=== PATIENT | male | born 1950 | race Caucasian/White ===

== ENCOUNTER 2017-02-18 23:15 | Inpatient (IN) | payer MEDICAID, MEDICARE ==
[2017-02-19] MEDS ORDERED: Morphine 2 mg/ml ISec IVP STA (00:21)
[2017-02-19] MEDS ORDERED: Sodium Chloride 0.9% 1,000 ML IV SCH (00:30)
--- NOTE | 2017-02-19 00:30 | ED PDOC ---
Arrival/HPI - General Chief Complaint: Abdominal Pain Time Seen by Provider: 02/19/17 00:09 Historian: Patient - History of Present Illness Narrative History of Present Illness (Text): 02/19/17 00:32 67 year old male whose past medical history includes hypertension, diabetes, liver transplant, and VPH presents to the Emergency department complaining of intermittent chest pain over the past few days associated yesterday and today with abdominal cramps, nausea, vomiting, and diarrhea. Patient denies fever, chills, or shortness of breath. Time/Duration: < week Symptom Onset: Gradual Symptom Course: Unchanged Activities at Onset: Rest Past Medical History - Provider Review Nursing Documentation Reviewed: Yes - Infectious Disease Hx of Infectious Diseases: None - Tetanus Immunization Tetanus Immunization: Unknown - Cardiac Hx Cardiac Disorders: Yes (CAD) Hx Hypertension: Yes - HEENT Hx HEENT Disorder: Yes (WEARS RX GLASSES) Hx Cataracts: Yes Hx Glaucoma: Yes - Hematological/Oncological Hx Blood Disorders: Yes Hx Hepatitis C: Yes - Musculoskeletal/Rheumatological Hx Musculoskeletal Disorders: Yes (BACK SX, L KNEE SX-ARTHROSCOPY,) Hx Arthritis: Yes Hx Falls: No - Gastrointestinal Hx Gastrointestinal Disorders: Yes Hx Liver Failure: Yes (liver transplant 2006) - Genitourinary/Gynecological Hx Genitourinary Disorders: Yes (ENLARGED PROSTATE) Hx Prostate Problems: Yes (BPH) - Psychiatric Hx Psychophysiologic Disorder: Yes Hx Depression: Yes Hx Emotional Abuse: No Hx Physical Abuse: No Hx Substance Use: No - Surgical History Hx Liver Transplant: Yes Hx Open Heart Surgery: Yes (left knee ARTHROSCOPY) Hx Orthopedic Surgery: Yes (knee/back) Other/Comment: Liver transplant - Anesthesia Hx Anesthesia: Yes Hx Anesthesia Reactions: No Hx Malignant Hyperthermia: No - Suicidal Assessment Feels Threatened In Home Enviroment: No Family/Social History - Physician Review Nursing Documentation Reviewed: Yes Family/Social History: Unknown Family HX Smoking Status: Never Smoked Hx Alcohol Use: No Hx Substance Use: No Hx Substance Use Treatment: No Allergies/Home Meds Allergies/Adverse Reactions: Allergies codeine Allergy (Verified 02/19/17 00:11) ANAPHYLAXIS Home Medications: Home Meds Medication Instructions Recorded Confirmed Amlodipine Besylate 5 mg PO DAILY 11/18/12 01/29/15 Aspirin [Ecotrin] 81 mg PO DAILY 11/18/12 01/29/15 Bimatoprost [Lumigan] 1 drop OP HS 11/18/12 01/29/15 Bisoprolol 5 mg PO DAILY 11/18/12 01/29/15 Buspirone Hydrochloride [Buspirone] 10 mg PO DAILY 11/18/12 01/29/15 Citalopram Hydrobromide 20 mg PO DAILY 11/18/12 01/29/15 [Citalopram] Mycophenolate Mofetil [Cellcept] 500 mg PO BID 11/18/12 01/29/15 Depuf-6-Tabo Ethyl Esters [Lovaza] 1 gm PO QID 11/18/12 01/29/15 Omeprazole 40 mg PO DAILY 11/18/12 01/29/15 Cyclosporine, Modified [Neoral] 50 mg PO BID 08/25/13 01/29/15 Vitamin B Complex & Vitamin C 1 tab PO DAILY 08/25/13 01/29/15 [Strovite] cycloSPORINE [Restasis] 1 drop DAILY 08/25/13 01/29/15 Cholecalciferol [Vitamin D3] 1,000 iu PO DAILY 01/08/14 01/29/15 Olopatadine Hydrochloride [Pataday 1 drop OP DAILY 01/08/14 01/29/15 2.5 ml] Tamsulosin [Flomax] 0.4 mg PO DAILY 01/08/14 01/29/15 traZODone [Desyrel] 50 mg PO DAILY 01/08/14 01/29/15 Review of Systems - Physician Review All systems were reviewed & negative as marked: Yes - Review of Systems Constitutional: absent: Fevers, Other (chills) Respiratory: absent: SOB, Cough Cardiovascular: Chest Pain Gastrointestinal: Diarrhea, Nausea, Vomiting, Other (+abdominal cramps) Physical Exam Vital Signs Reviewed: Yes Vital Signs Temp Pulse Resp BP Pulse Ox 02/19/17 06:01 67 15 120/80 95 02/19/17 05:19 69 16 125/84 96 02/19/17 03:51 98.1 F 68 14 124/82 95 02/19/17 02:58 98.3 F 75 18 119/86 96 02/19/17 00:26 98.8 F 90 18 127/57 L 95 Temperature: Afebrile Blood Pressure: Normal Pulse: Regular Respiratory Rate: Normal Appearance: Positive for: Well-Appearing, Non-Toxic, Comfortable Pain Distress: None Mental Status: Positive for: Alert and Oriented X 3 - Systems Exam Head: Present: Atraumatic, Normocephalic Pupils: Present: PERRL Extroacular Muscles: Present: EOMI Conjunctiva: Present: Normal Mouth: Present: Moist Mucous Membranes Neck: Present: Normal Range of Motion Respiratory/Chest: Present: Clear to Auscultation, Good Air Exchange. No: Respiratory Distress, Accessory Muscle Use, Wheezes, Rales, Rhonchi Cardiovascular: Present: Regular Rate and Rhythm, Normal S1, S2. No: Murmurs, Rub, Gallop Abdomen: Present: Tenderness (minimal tenderness mid-lower abdomen ), Normal Bowel Sounds, Scars. No: Distention, Peritoneal Signs, Rebound, Guarding Back: Present: Normal Inspection Upper Extremity: Present: Normal Inspection. No: Cyanosis, Edema Lower Extremity: Present: Normal Inspection. No: Edema Neurological: Present: GCS=15, CN II-XII Intact, Speech Normal Skin: Present: Warm, Dry, Normal Color. No: Rashes Psychiatric: Present: Alert, Oriented x 3, Normal Insight, Normal Concentration Medical Decision Making ED Course and Treatment: 02/19/17 00:36 Impression: 67 year old male complaining of intermittent chest pain, abdominal cramps, nausea, vomiting, and diarrhea. Physical exam revealed minimal mid-lower abdominal tenderness, no guarding or rebound tenderness, old surgical scars noted. Plan: --CT Abdomen/Pelvis --EKG --Chest X-ray --Labs --Toradol, Zofran, IVF -- Reassess and disposition Prior Visits: Notes and results from previous visits were reviewed. Progress Notes: 02/19/17 02:34 EXAM: CT Abdomen and Pelvis Without Intravenous Contrast Dictated and Authenticated by: Elisa Hernández MD FINDINGS: Lower thorax: Lung bases with no findings of acute infection. Air in the esophagus in keeping with reflux. Small hiatus hernia. ABDOMEN: Liver: There is a nodular contour to the liver in keeping with cirrhosis. Gallbladder and bile ducts: Status post cholecystectomy. Pancreas: See above. Spleen: Unremarkable. No splenomegaly. Adrenals: Mild nodularity of the left adrenal gland. Kidneys and ureters: no hydronephrosis. No ureteral stones are seen noting that punctate stones or noncalcified stones may not be well seen on CT. Incidental finding of retroaortic left renal vein. Stomach and bowel: No anterior abdominal wall hernias containing bowel. There is increased fluid content in normal caliber colon. Finding suggest a diarrheal illness. Scattered diverticuli are seen with no findings to suggest acute diverticulitis. No evidence of obstruction. Appendix: The appendix is clearly identified and is normal. PELVIS: Bladder: collapsed, likely thick walled. Reproductive: Prostate 5.3 cm, laboratory correlation recommended. ABDOMEN and PELVIS: Intraperitoneal space: No free air. No significant fluid collection. Bones/joints: Bony structures - no apparent acute fractures. Likely disc disease L4-5, L5-S1. Soft tissues: See above.There are numerous surgical clips in the gallbladder fossa as well as the gastrohepatic ligament, and adjacent to the pancreas, history re this is not provided. Vasculature: Scattered atherosclerotic calcifications. Lymph nodes: Multiple although small para-aortic and aortocaval nodes at the level of the renal veins. Paraesophageal nodes at the diaphragmatic hiatus. There is an overall increase in jimbo burden although individual nodes are relatively small in the gastrohepatic ligament. Consider evaluation for esophageal or other cause. There is a mild amount of infiltration of the mesenteric fat, associated with multiple small nodes, see for example series 2 image 102, extending from the area immediately caudal to the pancreas inferiorly tracking with the major mesenteric vessels, this is a nonspecific finding noting that it is sometimes associated with cirrhosis. IMPRESSION: Findings in keeping with a diarrheal illness. Cirrhosis. Bladder as above, correlate for infection. Prostate prominent. The absence of intravenous contrast greatly limits evaluation of the parenchymal organs. The absence of oral contrast limits evaluation of the gastrointestinal tract. 02/19/17 04:14 Chest X-ray Impression: negative, ready by me 02/19/17 04:17 EKG: Ordered, reviewed, and independently interpreted the EKG. Rate : 90 BPM Rhythm : NSR Interpretation : LVH, inferior infarct, nonspecific ST/T changes 02/19/17 04:[address] Estrada who accepts patient to her service. Dr. Quiroga and Dr. Contreras on consult. - Lab Interpretations Lab Results: 02/19/17 00:45 02/19/17 00:45 Lab Results 02/19/17 04:05: pO2 106 H, VBG pH 7.31 L, VBG pCO2 31.0 L, VBG HCO3 15.6 L, VBG Total CO2 16.6 L, VBG O2 Sat (Calc) 98.4 H, VBG Base Excess -9.4 L, VBG Potassium 3.8, Sodium 135.0, Chloride 108.0 H, Glucose 94, Lactate 1.2, FiO2 21.0, Venous Blood Potassium 3.8 02/19/17 00:45: WBC 6.7 D, RBC 5.11, Hgb 15.3, Hct 44.5, MCV 87.1, MCH 29.9, MCHC 34.4, RDW 14.2, Plt Count 274, MPV 9.6, PT 11.4, INR 1.06, APTT 33.1 H, Sodium 138, Chloride 106, Potassium 3.9, Carbon Dioxide 17 L, Anion Gap 19, BUN 21, Creatinine 1.5 H, Est GFR ( Amer) 56, Est GFR (Non-Af Amer) 47, Random Glucose 117 H, Calcium 9.5, Total Bilirubin 1.3, AST 32, ALT 28, Alkaline Phosphatase 72, Lactate Dehydrogenase 433, Total Creatine Kinase 74, Troponin I < 0.01, Total Protein 8.3, Albumin 4.4, Globulin 3.9, Albumin/ Globulin Ratio 1.1, Lipase 85 I have reviewed the lab results: Yes - RAD Interpretation Radiology Orders: 02/19/17 00:19 ABD & PELVIS W/O PO OR IV CONT [CT] Stat CHEST PORTABLE [RAD] Stat - Medication Orders Current Medication Orders: Sodium Chloride (Sodium Chloride 0.9%) 1,000 mls @ 100 mls/hr IV .Q10H ISABEL Discontinued Medications Sodium Chloride (Sodium Chloride 0.9%) 1,000 mls @ 100 mls/hr IV .Q10H ISABEL Last Admin: 02/19/17 00:54 Dose: 100 MLS/HR eMAR Start Stop Document 02/19/17 00:54 EDIE (Rec: 02/19/17 00:54 EDIE [id number]) Intravenous Solution Start Date 02/19/17 Start Time 00:54 End Date 02/19/17 End time 10:54 Total Infusion Time 600 Ketorolac Tromethamine (Toradol) 30 mg IVP ONCE ONE Stop: 02/19/17 00:37 Last Admin: 02/19/17 00:55 Dose: 30 MG IVP Administration Document 02/19/17 00:55 FJA (Rec: 02/19/17 00:55 FJA [id number][place] Charges for Administration # of IVP Administrations 1 Ondansetron HCl (Zofran Inj) 4 mg IVP ONCE ONE Stop: 02/19/17 00:22 Last Admin: 02/19/17 00:54 Dose: 4 MG IVP Administration Document 02/19/17 00:54 FJA (Rec: 02/19/17 00:55 [facility]JA [id number]) Charges for Administration # of IVP Administrations 1 - Scribe Statement The provider has reviewed the documentation as recorded by the Scribe Jodi Diallo Provider Scribe Attestation: All medical record entries made by the Scribe were at my direction and personally dictated by me. I have reviewed the chart and agree that the record accurately reflects my personal performance of the history, physical exam, medical decision making, and the department course for this patient. I have also personally directed, reviewed, and agree with the discharge instructions and disposition. Disposition/Present on Arrival - Present on Arrival Any Indicators Present on Arrival: No History of DVT/PE: No History of Uncontrolled Diabetes: No Urinary Catheter: No History of Decub. Ulcer: No History Surgical Site Infection Following: None - Disposition Have Diagnosis and Disposition been Completed?: Yes Diagnosis: Chest pain, Gastroenteritis Disposition: HOSPITALIZED Disposition Time: 04:49 Patient Plan: Observation Patient Problems: Current Active Problems Problem Status Diagnosed Chest pain Acute Gastroenteritis Acute Condition: GOOD
[2017-02-19 01:10] LABS: HEMATOCRIT 44.5 % (42.0-52.0); MEAN CELL VOLUME 87.1 fL (80.0-105.0); MEAN CORPUSCULAR HEMOGLOBIN 29.9 pg (25.0-35.0); MEAN CORPUSCULAR HGB CONC 34.4 g/dl (31.0-37.0); MEAN PLATELET VOLUME 9.6 fl (7.0-11.0); RED CELL DISTRIBUTION WIDTH 14.2 % (11.5-14.5); WHITE BLOOD COUNT 6.7 10^3/ul (4.5-11.0)
[2017-02-19 01:14] LABS: ALB/GLOB RATIO 1.1 (1.1-1.8); ALKALINE PHOSPHATASE 72 U/L (38-133); ALT/SGPT 28 U/L (7-56); AST/SGOT 32 U/L (15-59); BILIRUBIN,TOTAL 1.3 mg/dL (0.2-1.3); BLOOD UREA NITROGEN 21 mg/dL (7-21); CALCIUM 9.5 mg/dL (8.4-10.5); CARBON DIOXIDE 17 mmol/L (21-33); GFR AFRICAN-AMERICAN 56; GLUCOSE,RANDOM 117 mg/dL (70-110); LIPASE 85 U/L (23-300); POTASSIUM 3.9 mmol/L (3.6-5.0); SODIUM 138 mmol/L (132-148); TOTAL PROTEIN 8.3 g/dL (5.8-8.3)
[2017-02-19 01:23] LABS: INR 1.06 (0.93-1.08); PARTIAL THROMBOPLASTIN TIME 33.1 Seconds (23.7-30.8)
[2017-02-19 01:24] LABS: TROPONIN I < 0.01 ng/mL
[2017-02-19 01:27] LABS: CHLORIDE 106 mmol/L (98-107)
--- NOTE | 2017-02-19 02:05 | CT ---
EXAM: CT Abdomen and Pelvis Without Intravenous Contrast CLINICAL HISTORY: 67 years old, male; Pain; Abdominal pain TECHNIQUE: Axial computed tomography images of the abdomen and pelvis without intravenous contrast. This CT exam was performed using one or more of the following dose reduction techniques: automated exposure control, adjustment of the mA and/or kV according to patient size, and/or use of iterative reconstruction technique. Coronal and sagittal reformatted images were created and reviewed. EXAM DATE/TIME: Exam ordered 02/19/2017 12:19 AM COMPARISON: No relevant prior studies available. FINDINGS: Lower thorax: Lung bases with no findings of acute infection. Air in the esophagus in keeping with reflux. Small hiatus hernia. ABDOMEN: Liver: There is a nodular contour to the liver in keeping with cirrhosis. Gallbladder and bile ducts: Status post cholecystectomy. Pancreas: See above. Spleen: Unremarkable. No splenomegaly. Adrenals: Mild nodularity of the left adrenal gland. Kidneys and ureters: no hydronephrosis. No ureteral stones are seen noting that punctate stones or noncalcified stones may not be well seen on CT. Incidental finding of retroaortic left renal vein. Stomach and bowel: No anterior abdominal wall hernias containing bowel. There is increased fluid content in normal caliber colon. Finding suggest a diarrheal illness. Scattered diverticuli are seen with no findings to suggest acute diverticulitis. No evidence of obstruction. Appendix: The appendix is clearly identified and is normal. PELVIS: Bladder: collapsed, likely thick walled. Reproductive: Prostate 5.3 cm, laboratory correlation recommended. ABDOMEN and PELVIS: Intraperitoneal space: No free air. No significant fluid collection. Bones/joints: Bony structures - no apparent acute fractures. Likely disc disease L4-5, L5-S1. Soft tissues: See above.There are numerous surgical clips in the gallbladder fossa as well as the gastrohepatic ligament, and adjacent to the pancreas, history re this is not provided. Vasculature: Scattered atherosclerotic calcifications. Lymph nodes: Multiple although small para-aortic and aortocaval nodes at the level of the renal veins. Paraesophageal nodes at the diaphragmatic hiatus. There is an overall increase in jimbo burden although individual nodes are relatively small in the gastrohepatic ligament. Consider evaluation for esophageal or other cause. There is a mild amount of infiltration of the mesenteric fat, associated with multiple small nodes, see for example series 2 image 102, extending from the area immediately caudal to the pancreas inferiorly tracking with the major mesenteric vessels, this is a nonspecific finding noting that it is sometimes associated with cirrhosis. IMPRESSION: Findings in keeping with a diarrheal illness. Cirrhosis. Bladder as above, correlate for infection. Prostate prominent. The absence of intravenous contrast greatly limits evaluation of the parenchymal organs. The absence of oral contrast limits evaluation of the gastrointestinal tract.
[2017-02-19 04:16] LABS: VENOUS BLOOD GAS BASE EXCESS -9.4 mmol/L (0.0-2.0); VENOUS BLOOD PH 7.31 (7.32-7.43)
[2017-02-19] MEDS: Sodium Chloride 0.9% 1,000 ML IV SCH ×2 (07:29→17:35)
[2017-02-19] MEDS ORDERED: CYCLOSPORINE PO SCH (10:00)
[2017-02-19] MEDS ORDERED: VITAMIN B COMPLEX PO SCH (10:00)
[2017-02-19] MEDS ORDERED: cycloSPORINE 100 mg/mL Oral Soln (50ml) PO SCH (10:00)
[2017-02-19] MEDS ORDERED: BISOPROLOL 5 MG PO SCH ×3 (10:00→11:24)
[2017-02-19] MEDS ORDERED: [UNRECOGNIZED DRUG - OTHER] PO SCH (10:00)
[2017-02-19] MEDS ORDERED: VITAMIN C PO SCH (10:00)
[2017-02-19] MEDS: cycloSPORINE 0.05 % Opth Emulsion UD OD SCH (10:31)
[2017-02-19] MEDS ORDERED: CYCLOSPORINE 25 MG PO SCH (11:14)
[2017-02-19] MEDS: Omega-3-Acid Ethyl Esters 1 GM Cap PO SCH ×4 (12:19→21:37)
[2017-02-19] MEDS: OLOPATADINE HYDROCHLORIDE OP SCH (12:20)
--- NOTE | 2017-02-19 12:46 | CARD ---
APPROVED REPORT EKG Measurement Heart [id number] <Conclusion> Normal sinus rhythm Possible Left atrial enlargement Left ventricular hypertrophy Inferior infarct, age undetermined Abnormal ECG
--- NOTE | 2017-02-19 13:21 | RAD ---
HISTORY: chest pain COMPARISON: No prior. FINDINGS: LUNGS: No active pulmonary disease. PLEURA: No significant pleural effusion identified, no pneumothorax apparent. CARDIOVASCULAR: Normal. OSSEOUS STRUCTURES: No significant abnormalities. VISUALIZED UPPER ABDOMEN: Normal. OTHER FINDINGS: None. IMPRESSION: No active disease.
--- NOTE | 2017-02-19 14:26 | CON ---
DATE: 02/19/2017 The patient is in room 264, bed 1. REASON FOR CONSULTATION: Abdominal pain, chest pain. HISTORY OF PRESENT ILLNESS: This is a 67-year-old male who is known to have high blood pressure, santiago betes, sleep apnea and blood pressure he has more than 20 years and diabetes he was told about 4 loren hs ago. The patient states since, last 2 days, he is having pain in abdomen with vomiting and diarrh ea. He states that since 20 years he has a constant pain in the chest and the left lower chest which goes directly to the back. It is a very sharp pain and it lasts for many hours. Sometimes, the lef t arm numb and weak. This chest pain has no relation to exertion. For the same chest pain, he had a stress test 01/29/2015 which was negative with ejection fraction of 76%. He also had echo 01/29/2015 which showed mild LVH, LV ejection fraction 60-65%, mild to moderate mitral regurg, mild tricuspid re gurg, trace aortic regurg, RSVP 36 mmHg. The patient also has history of liver transplant. PAST MEDICAL HISTORY: Positive for liver transplant, hypertension, sleep apnea, diabetes mellitus, k nee surgery. PERSONAL HISTORY: No smoking, no drinking. ALLERGIES: THE PATIENT IS ALLERGIC TO CODEINE. HOME MEDICATIONS: The patient was taking Norvasc 5 mg daily, aspirin 81 daily and Lumigan 1 drop ___ _ eye at bedtime, bisoprolol 5 mg p.o. daily, buspirone 10 mg p.o. daily, citalopram 20 mg daily, Ce llCept 500 mg b.i.d., Lovaza 1 gram p.o. q.i.d., omeprazole 40 mg daily, Neoral 50 mg b.i.d., vitamin B complex, vitamin C 1 tablet p.o. daily, cyclosporine 1 drop daily, vitamin D3 100 international un its p.o. daily, Pataday 2.5 mL 1 drop ____ eye daily, Flomax 0.4 daily, trazodone 50 mg daily. REVIEW OF SYSTEMS: All the systems reviewed, positive mentioned in the history, others were negative . FAMILY HISTORY: Not significant. PHYSICAL EXAMINATION: VITAL SIGNS: Blood pressure 132/82, respirations 18, pulse 73, temperature 97.8. HEAD: Normocephalic. EYES: Pupils normal. Conjunctivae normal. NOSE AND THROAT: Normal. NECK: JVP low. Carotid equal. THORAX: AP diameter normal. LUNGS: Clear. CARDIOVASCULAR: S1, S2. ABDOMEN: Soft, no tenderness, no organomegaly. Bowel sounds normal. EXTREMITIES: No clubbing, no cyanosis. LABORATORY: Shows WBC 6.7, hemoglobin 15.3, hematocrit 44.5, platelet 274. Sodium 138, potassium 3. 9, BUN 21, creatinine 1.5. Calcium, bilirubin, AST, ALT normal. Troponin less than 0.01. EKG showe d normal sinus rhythm, left atrial enlargement, left ventricular hypertrophy, possible old inferior i nfarct. DIAGNOSES: Abdominal pain, diarrhea, vomiting, probably gastroenteritis. Chest pain is atypical fro m cardiac point of view. High blood pressure, diabetes, sleep apnea, obesity, history of liver kim splant. PLAN: The patient is on aspirin 81 mg daily, also amlodipine 5 mg daily. The patient is getting IV fluid therapy. The patient's vomiting is better. He still has diarrhea. The patient is getting oth er medications as listed. We will continue present therapy and will repeat his echo and stress test when his vomiting, diarrhea has been stopped. We will follow with you. If he needs any GI procedure , from cardiac point of view, the patient can go for those procedures. Elie Pérez MD cc: [id number] TT: 02/19/2017 14:26:20 Confirmation # [id number] Dictation # [id number] tn
[2017-02-19 15:03] VITALS: BMI 31.9
[2017-02-19] MEDS ORDERED: Pneumococcal 23-Valent Vaccine IM ONE (15:03)
[2017-02-19 18:14] LABS: CHOLESTEROL 161 mg/dL (130-200)
[2017-02-19 18:30] LABS: TROPONIN I < 0.01 ng/mL
[2017-02-19 18:58] LABS: URINE BILIRUBIN NEGATIVE (NEGATIVE); URINE BLOOD NEGATIVE (NEGATIVE); URINE GLUCOSE (UA) NEGATIVE (NEGATIVE); URINE KETONE NEGATIVE (NEGATIVE); URINE LEUKOCYTE ESTERASE NEGATIVE Leu/uL (NEGATIVE); URINE PROTEIN NEGATIVE mg/dL (<30 mg/dL); URINE UROBILINOGEN 0.2 E.U./dL (<1 E.U./dL)
[2017-02-19 18:59] LABS: URINE APPEARANCE CLEAR (CLEAR); URINE COLOR YELLOW (YELLOW)
--- NOTE | 2017-02-19 20:26 | HP ---
CHIEF COMPLAINT: Abdominal pain. HISTORY OF PRESENT ILLNESS: The patient is a 67-year-old male who came with past medical history of hypertension, diabetes mellitus and liver transplant presents to the Emergency Department complaining of intermittent chest pain over the past few days associated with abdominal cramps, nausea, vomiting and diarrhea. The patient denies fever, chills, shortness of breath. No hematuria , no hematochezia. We kept the patient. Cardiology and GI consult called. PAST MEDICAL HISTORY: Coronary artery disease, hypertension, hepatitis C, arthritis, history of back surgery, left knee arthroscopy, liver failure, got liver transplant in 2006, enlarged prostate, BPH, open heart surgery, neck and back surgery, liver transplant. FAMILY HISTORY: Father and mother noncontributory. HABITS: Never smoked, no drugs, no ethanol. ALLERGIES: THE PATIENT IS ALLERGIC TO CODEINE. MEDICATIONS: Amlodipine, aspirin, Lumigan, bisoprolol, BuSpar, CellCept, Lovaza , omeprazole, cyclosporine, vitamins D, Flomax, trazodone. REVIEW OF SYSTEMS: The patient is seen and examined on the bedside in telemetry. Diarrhea is getting better. Abdominal pain is getting better. Still having a little bit of abdominal cramps, came with nausea, vomiting and chest pain. No shortness of breath, no fever, no chills, no swelling of the legs. No hematuria, no hematochezia. PHYSICAL EXAMINATION: VITAL SIGNS: Temperature 97.8, pulse 73, blood pressure 120/82, respiratory rate 15. HEENT: Head normocephalic, atraumatic. Eyes: PERRLA. Extraocular muscles intact. Conjunctivae pink. Eyelids unremarkable. Nose patent. Mucous membranes moist. NECK: Supple. No carotid bruit, JVD or thyromegaly. CHEST: Bilaterally symmetrical. HEART: S1, S2 positive. LUNGS: Clear to auscultation. ABDOMEN: Soft. Bowel sounds present. No organomegaly. EXTREMITIES: No edema, no cyanosis. NEUROLOGIC: The patient is awake, alert, moving all 4 extremities. No focal deficit. LABORATORY DATA: White blood cells 6.7, hemoglobin 15.3, hematocrit 44.5, platelets 274. Sodium 138, potassium 3.9, BUN 21, creatinine 1.5, glucose 117, lipase 85. Liver function tests within normal limits. ASSESSMENT AND PLAN: The patient is 67-year-old male with hyperglycemia, came with chest pain, abdominal pain, nausea, vomiting, diarrhea. Seen by Dr. Pérez , [employer]. Has history of liver transplant, hypertension, sleep apnea, diabetes mellitus, knee surgery, history of hepatitis C, probably patient has gastroenteritis. Chest pain is atypical as per Dr. Pérez. I started the patient on aspirin, amlodipine and getting IV fluid. No more vomiting. Still has diarrhea. Dr. Pérez wants to do echo and stress test when his vomiting and diarrhea has been stopped. Seen by [employer]. CAT scan of the abdomen and pelvis done, reviewed by me. Looks like patient has cirrhosis of the liver , prostate prominent, multiple small nodes at the level of the renal vein. Waiting for GI input. Continue present treatment. Gastrointestinal and deep venous thrombosis prophylaxis. Repeat labs. We will follow up. Emmy Estrada MD cc: [id number] TT: 02/19/2017 20:25:36 [id number] [facility]
[2017-02-19] MEDS: LUMIGAN 0.01% OU SCH (21:37)
[2017-02-19] MEDS ORDERED: Latanoprost 2.5 ml Opht Soln OU SCH (22:00)
[2017-02-20] MEDS: Sodium Chloride 0.9% 1,000 ML IV SCH ×3 (03:00→22:08)
[2017-02-20 06:58] LABS: HEMATOCRIT 40.1 % (42.0-52.0); MEAN CORPUSCULAR HEMOGLOBIN 29.9 pg (25.0-35.0); MEAN CORPUSCULAR HGB CONC 34.4 g/dl (31.0-37.0); MEAN PLATELET VOLUME 9.3 fl (7.0-11.0); RED CELL DISTRIBUTION WIDTH 14.2 % (11.5-14.5); WHITE BLOOD COUNT 5.1 10^3/ul (4.5-11.0)
[2017-02-20 07:06] LABS: BLOOD UREA NITROGEN 13 mg/dL (7-21); CALCIUM 8.5 mg/dL (8.4-10.5); CARBON DIOXIDE 21 mmol/L (21-33); CHLORIDE 112 mmol/L (98-107); GFR AFRICAN-AMERICAN > 60; GLUCOSE,RANDOM 87 mg/dL (70-110); POTASSIUM 4.1 mmol/L (3.6-5.0); SODIUM 140 mmol/L (132-148)
[2017-02-20] MEDS: Pantoprazole 40 mg EC Tab PO SCH (08:18)
[2017-02-20] MEDS: Lactobacillus Acidophilus 500 MU Cap PO SCH ×2 (09:06→17:25)
[2017-02-20] MEDS: Omega-3-Acid Ethyl Esters 1 GM Cap PO SCH ×4 (09:06→22:08)
[2017-02-20] MEDS: CENTRUM SILVER PO SCH (09:17)
[2017-02-20] MEDS: OLOPATADINE HYDROCHLORIDE OP SCH (09:17)
[2017-02-20] MEDS: cycloSPORINE 0.05 % Opth Emulsion UD OD SCH (09:52)
--- NOTE | 2017-02-20 12:53 | PN ---
DATE: 02/20/2017 The patient is in room 264, bed 1. REASON FOR CONSULTATION: Abdominal pain, chest pain. HISTORY OF PRESENT ILLNESS: A 67-year-old male known to have high blood pressure, diabetes, sleep ap rene. The patient stated that 2 days prior to admission, he was having pain in the abdomen with vomit ing and diarrhea. He also stated that since the last 20 years, he has a constant pain in the chest w hich is at the lower chest which goes directly to the back. It is a very sharp pain and lasts for ma ny hours. Sometimes left arm gets numb and weak. This chest pain really has no relation to exertion . For the same chest pain, he had a stress test 01/29/2015 which was negative with ejection fraction of 76%. Echo also 01/29/2015 which showed mild LVH, ejection fraction 60% to 65%, mild to moderate mitral regurg, mild tricuspid regurg, trace aortic regurg, RSVP 36.7 mmHg. The patient also had a li brandon transplant. The patient's diarrhea and vomiting has improved now and so has abdominal pain, and he does not have any chest pain at present. The patient lying comfortably in the bed without any car diac symptoms. PHYSICAL EXAMINATION: VITAL SIGNS: Blood pressure 127/79, respiration 18, pulse 73, temperature 97.5. HEAD: Normocephalic. EYES: Pupils normal. Conjunctivae normal. NOSE AND THROAT: Normal. NECK: JVP low. Carotid equal. THORAX: AP diameter normal. LUNGS: Clear. CARDIOVASCULAR: S1, S2. ABDOMEN: Soft, nontender, no organomegaly. Bowel sounds normal. EXTREMITIES: No clubbing, no cyanosis. LABORATORY DATA: WBC 5.1, hemoglobin 13.8, hematocrit 40.1. Sodium 140, potassium 4.1, BUN 13, crea tinine 1.0, random glucose 87, calcium 8.5. Troponin x 2 negative. Triglycerides 200. Cholesterol 161. DIAGNOSES: Abdominal pain, diarrhea and vomiting, primary gastroenteritis, chest pain since past 20 years probably atypical, high blood pressure, diabetes, sleep apnea, obesity, and history of liver tr ansplant. PLAN: The patient is getting aspirin 81 mg p.o. daily, metronidazole 250 mg p.o. q. 8 hours, amlodip ine 5 mg daily, Protonix 40 mg p.o. daily, IV fluid normal saline 100 mL an hour. We will continue p resent therapy, and when the patient improves from GI symptoms and he we will do echo and stress test later on, probably as an outpatient, and we will continue to follow closely with you. Elie Pérez MD cc: [id number] TT: 02/20/2017 12:52:17 Confirmation # [id number] Dictation # [id number] mn
--- NOTE | 2017-02-20 20:19 | PN ---
DATE: 02/20/2017 SUBJECTIVE: The patient was seen and examined at the bedside, looks comfortable. No nausea, vomiting, or diarrhea. The diarrhea is getting better. No hematuria or hematochezia. No swelling of the legs. Abdominal pain got better. Chest pain is better lying down. PHYSICAL EXAMINATION: VITAL SIGNS: Blood pressure 127/79, respiratory rate 18, pulse 73, temperature 97.5. HEENT: Head normocephalic, atraumatic. Eyes: PERRLA. Extraocular muscles intact. Conjunctivae pink. Eyelids unremarkable. Nose patent. NECK: Supple. No carotid bruit, JVD or thyromegaly. CHEST: Bilaterally symmetrical. HEART: S1, S2 positive. ABDOMEN: Soft, nontender. No organomegaly. EXTREMITIES: No edema, no cyanosis. NEUROLOGIC: The patient is awake, alert, moving all 4 extremities. No focal deficits. LABORATORY DATA: White blood cells 5.1, hemoglobin 13.8, hematocrit 40.1. Sodium 140, potassium 4.1, BUN 13, creatinine 1.0, glucose 87, triglycerides 200 , cholesterol 161. ASSESSMENT AND PLAN: The patient is a 67-year-old male with abdominal pain, diarrhea and vomiting, gastroenteritis and chest pain, according to eligibility consultant , looks like atypical chest pain; hypertension, diabetes mellitus, sleep apnea, obesity, history of liver transplant. The patient is getting aspirin. was started by ISIDRO Coleman, because of the patient's liver transplant and he is on certain medications because of interaction, amlodipine for hypertension, Protonix for GI prophylaxis, IV NS for dehydration. Length of time discussion was done with Dr. Gilman. And eligibility consultant is on the case. CAT scan of abdomen and pelvis was done and reviewed by me. According to the CAT scan, the patient has cirrhosis, prostate prominent. Continue present treatment. Will followup. Emmy Estrada MD cc: [id number] TT: 02/20/2017 20:18:38 Confirmation # [id number] Dictation # [id number] LUU
[2017-02-20] MEDS: LUMIGAN 0.01% OU SCH (22:09)
--- NOTE | 2017-02-20 23:45 | CON ---
DATE: 02/20/2017 SUBJECTIVE: This patient was seen and evaluated earlier. He said his diarrhea has completely disapp eared. No abdominal pain. He is feeling hungry and he wants to eat. No vomiting. PHYSICAL EXAMINATNOI: VITAL SIGNS: On examination, temperature 97.4, pulse 86, blood pressure 135/82. HEENT: Atraumatic, anicteric. NECK: Supple. HEART: S1, S2 heard. LUNGS: Bilateral air entry present. ABDOMEN: Soft. There is no tenderness. EXTREMITIES: No cyanosis, no clubbing. LABORATORY DATA: Hemoglobin is 13.8, hematocrit 40.1, WBC 5.1, platelets 242. BUN 13, creatinine 1. 0. IMPRESSION: This 67-year-old patient is status post liver transplant for hepatocellular carcinoma in 2006 at [facility], on cyclosporine and CellCept, was admitted with diarrhea, ab dominal pain and vomiting after he ate a snack from a local restaurant. The symptoms persisted more than 5 days, presented to the Emergency Room. Now, the symptoms completely resolved. The patient wa s requested for stool studies, but could not complete that. The patient was initially empirically st arted on Flagyl, which has been discontinued. No fever. The CT scan of the abdomen and pelvis also showed cirrhotic changes of the liver with lymphadenopathy . The patient has a history of hepatitis C post-transplant, was treated and he was told the treatmen t was successful, is in remission. The patient had an endoscopy and colonoscopy done at the [facility] by Dr. Nicholas a few year s ago. The patient has been followed at [facility] every 6 months. Last CAT scan; this was about 2 years ago. He gets his blood work done routinely. He is also followed by his primary do ctor once a month, Dr. Marcin Nicholson. Would recommend now advance the diet. The patient is also being followed by the psychologist personnel. PLAN: Recommended to the patient to get copies of the recent CAT scan CD and advised to follow up wi [facility] to compare with the previous workup. Advise followup. Thank you very much for allowing us to participate in the care of the patient. Shirley Gilman MD cc: [id number] TT: 02/20/2017 23:44:27 Confirmation # [id number] Dictation # [id number] mn
[2017-02-21 05:33] VITALS: O2SAT 96
[2017-02-21] MEDS: Pantoprazole 40 mg EC Tab PO SCH (09:14)
[2017-02-21] MEDS: Omega-3-Acid Ethyl Esters 1 GM Cap PO SCH (09:15)
[2017-02-21] MEDS: Lactobacillus Acidophilus 500 MU Cap PO SCH (09:19)
[2017-02-21] MEDS: CENTRUM SILVER PO SCH (09:19)
[2017-02-21] MEDS: OLOPATADINE HYDROCHLORIDE OP SCH (09:20)
[2017-02-21] MEDS: cycloSPORINE 0.05 % Opth Emulsion UD OD SCH (09:20)
[2017-02-21] MEDS: Sodium Chloride 0.9% 1,000 ML IV SCH (09:21)
[2017-02-21] MEDS ORDERED: POLYETHYLENE GLYCOL 3350 17 GM/Dose PACKET PO ONE (11:25)
--- NOTE | 2017-02-21 12:06 | PN ---
DATE: 02/21/2017 REASON FOR CONSULTATION AND FOLLOWUP: Abdominal pain, atypical chest pain, no evidence of acute aileen nary syndrome. BRIEF CLINICAL HISTORY: This is a 67-year-old male with past medical history of diabetes, hypertensi on, hyperlipidemia, obstructive sleep apnea, admitted with abdominal pain. So far, no evidence of ac [place] coronary syndrome. PHYSICAL EXAMINATION: As follows: VITAL SIGNS: Temperature afebrile, heart rate 71, blood pressure 138/88. HEENT: PERRLA, intact. NECK: Supple. No carotid bruits. No thyromegaly. CHEST: Clear to auscultation. HEART: S1, S2 regular. ABDOMEN: Soft. EXTREMITIES: Clubbing and cyanosis negative. BLOOD WORKUP: As follows: WBC ____, hemoglobin 13, hematocrit 40.1, platelet count 242. Chemistry shows sodium 140, potassium ____, chloride 112, carbon dioxide 21, anion gap of 11, BUN 13, creatinin e 1.0. IMPRESSION: Atypical chest pain. So far, no evidence of acute coronary syndrome. Troponin x 2 nega tive. History of liver transplant in the past, history of ____, hypertension, diabetes. History of a stress test 01/29/2015, negative, ejection fraction 75%. History of echo 01/29/2015, shows LVH, ejec tion fraction 60% to 65%. RECOMMENDATION: Continue GI workup. Consider stress test as outpatient when the patient is stable. So far, patient is stable. We will discontinue telemetry. Needs adjustment of antihypertensive med ication. We will start 5 mg of Norvasc today. We will follow with you. Thank you, Dr. Estrada, for providing us the opportunity in taking care of the patient. We will disco ntinue IV fluid ____ hypertension. We will discontinue telemetry. We will do a stress test as outpa tient. We will follow with you. Elie Quiroga MD cc: [id number] TT: 02/21/2017 12:06:03 Confirmation # [id number] Dictation # [id number]
--- NOTE | 2017-02-21 12:33 | PN ---
DATE: 02/21/2017 Seen and examined at the bedside earlier this morning. He is tolerating his regular diet. No compla ints of nausea, vomiting or even diarrhea. No abdominal pain. He reports his last bowel movement wa s 2 days ago. Denies any shortness of breath or chest pains. No fever or chills or acute overnight events. VITAL SIGNS: Temperature is 97.5, blood pressure 138/88, pulse 71, respirations 20, 96 on room air. BLOOD WORK: No recent labs are noted for today. PHYSICAL EXAMINATION: HEENT: Sclerae anicteric. NECK: Supple. CARDIAC: S1, S2. LUNGS: With decreased breath sounds, but good aeration. ABDOMEN: With bowel sounds. Does not look distended. Soft and nontender. EXTREMITIES: No edema. NEUROLOGIC: Awake, alert, and oriented. ASSESSMENT: This is a 67-year-old male with history of hepatocellular carcinoma, status post liver t ransplant in 2006. This was done at [facility]. The patient is on cyclosporine and Cell Cept. The patient came with complaints of abdominal pain, nausea, vomiting, diarrhea after consumpti on of snack from a local ____ restaurant; may likely be secondary to like a gastroenteritis. His santiago rrhea has improved. He was started empirically on Flagyl which is now discontinued. The stool studi es requested are not able to be collected but his symptoms are improved. The patient did, on admissi on, have CT scan of abdomen and pelvis showing cirrhotic changes of the liver with lymphadenopathy. He did have a history of hepatitis C after transplant and was treated and reports that it was success ful and is in remission. Other comorbidities of coronary artery disease and BPH. PLAN: Will give patient a dose of MiraLax. In lieu of improved diarrhea, we want to be careful with this. We will discontinue his lactobacillus. Continue his regular diet, soft. It was discussed wi th the patient and he was advised to follow up with [facility] transplant unit in referen ce to his previous workup and to get copies of recent CAT scan with CD. This was discussed with nurs ing staff as well. From GI point of view, patient may be discharged home with above recommendations. The patient was seen and case discussed with Dr. Gilman. Yue MUELLER cc: [id number] TT: 02/21/2017 12:33:14 Confirmation # [id number] Dictation # [id number] mn
[2017-02-21 13:43] VITALS: BP 145/79; PULSE 70; RESP 18; TEMP 97.3
== END 2017-02-21 14:20 | disposition home or self-care (01) | DRG 392 ==
LOC: ED 23:15 → ERH 02-19 04:49 → 2RNO 02-19 06:40 → OBSVTOIN 02-19 16:24
PROVIDERS: ADMIT Internal Medicine; ATTEND Internal Medicine
DX: K52.9 Noninfective gastroenteritis and colitis, unspecified (principal); Z94.4 Liver transplant status; E11.65 Type 2 diabetes mellitus with hyperglycemia; K74.60 Unspecified cirrhosis of liver; I08.3 Combined rheumatic disorders of mitral, aortic and tricuspid valves; I10 Essential (primary) hypertension; I25.10 Atherosclerotic heart disease of native coronary artery without angina pectoris; E66.9 Obesity, unspecified; E78.5 Hyperlipidemia, unspecified; E86.0 Dehydration; G47.33 Obstructive sleep apnea (adult) (pediatric); H40.9 Unspecified glaucoma; N40.0 Benign prostatic hyperplasia without lower urinary tract symptoms; Z79.82 Long term (current) use of aspirin; Z79.899 Other long term (current) drug therapy; Z85.05 Personal history of malignant neoplasm of liver; H26.9 Unspecified cataract; B19.20 Unspecified viral hepatitis C without hepatic coma; M19.90 Unspecified osteoarthritis, unspecified site; F32.89 Other specified depressive episodes; Z90.49 Acquired absence of other specified parts of digestive tract; Z88.5 Allergy status to narcotic agent; R07.89 Other chest pain; Z68.32 Body mass index [BMI] 32.0-32.9, adult

== ENCOUNTER 2017-03-21 21:06 | Emergency (ER) | payer MEDICARE, MEDICAID ==
[2017-03-21 21:09] VITALS: BMI 32.3
--- NOTE | 2017-03-21 23:09 | ED PDOC ---
Arrival/HPI - General Chief Complaint: Lower Extremity Problem/Injury Time Seen by Provider: 03/21/17 22:11 Historian: Patient - History of Present Illness Narrative History of Present Illness (Text): 03/21/17 23:06 67yr old male presents today with bilateral knee pain x 2 days. pt states he has hx of left knee pain and prior knee surgery. pt states he is now have pain in the left knee. pt also states the right knee swelled up yesterday. pt states swelling has improved. pt c/o pain with rom of knee. denies fever/chills. denies calf pain. pt denies numbness, weakness, tingling in the extremity. pt states he is able to ambulate with pain. denies any recent trauma or injury. Time/Duration: Other ( 1 day) Symptom Onset: Gradual Symptom Course: Improving Quality: Aching Past Medical History - Provider Review Nursing Documentation Reviewed: Yes - Travel History Have you recently traveled outside [place] w/in the past 3 mons?: No - Infectious Disease Hx of Infectious Diseases: None - Tetanus Immunization Tetanus Immunization: Unknown - Cardiac Hx Cardiac Disorders: Yes (CAD) Hx Hypertension: Yes - Pulmonary Hx Respiratory Disorders: No - Neurological Hx Neurological Disorder: No - HEENT Hx HEENT Disorder: Yes (WEARS RX GLASSES) Hx Cataracts: Yes Hx Glaucoma: Yes - Renal Hx Renal Disorder: No - Endocrine/Metabolic Hx Endocrine Disorders: No - Hematological/Oncological Hx Blood Disorders: Yes Hx Hepatitis C: Yes (no longer has) Other/Comment: Liver transplant- 2006 - Integumentary Hx Dermatological Disorder: No - Musculoskeletal/Rheumatological Hx Musculoskeletal Disorders: Yes (BACK SX, L KNEE SX-ARTHROSCOPY,) Hx Arthritis: Yes Hx Falls: No - Gastrointestinal Hx Gastrointestinal Disorders: Yes (HIATAL HERNIA SMALL) Hx Liver Failure: Yes (liver transplant 2006) - Genitourinary/Gynecological Hx Genitourinary Disorders: Yes (ENLARGED PROSTATE) Hx Prostate Problems: Yes (BPH) - Psychiatric Hx Psychophysiologic Disorder: Yes Hx Depression: Yes Hx Emotional Abuse: No Hx Physical Abuse: No Hx Substance Use: No - Surgical History Hx Cardiac Catheterization: Yes Hx Cholecystectomy: Yes Hx Liver Transplant: Yes Hx Musculoskeletal Surgery: Yes (left knee ARTHROSCOPY) Hx Open Heart Surgery: No Hx Orthopedic Surgery: Yes (knee/back) Other/Comment: Liver [id number] - Anesthesia Hx Anesthesia: Yes Hx Anesthesia Reactions: No Hx Malignant Hyperthermia: No - Suicidal Assessment Feels Threatened In Home Enviroment: No Family/Social History - Physician Review Nursing Documentation Reviewed: Yes Family/Social History: Unknown Family HX Smoking Status: Never Smoked Hx Alcohol Use: No Hx Substance Use: No Hx Substance Use Treatment: No Allergies/Home Meds Allergies/Adverse Reactions: Allergies codeine Allergy (Verified 03/21/17 21:08) ANAPHYLAXIS Home Medications: Home Meds Medication Instructions Recorded Confirmed Bimatoprost [Lumigan] 1 drop OP HS 11/18/12 03/21/17 Bisoprolol 5 mg PO DAILY 11/18/12 03/21/17 Mycophenolate Mofetil [Cellcept] 500 mg PO BID 11/18/12 03/21/17 Cyclosporine, Modified [Neoral] 50 mg PO BID 08/25/13 03/21/17 Vitamin B Complex & Vitamin C 1 tab PO DAILY 08/25/13 03/21/17 [Strovite] cycloSPORINE [Restasis] 1 drop DAILY 08/25/13 03/21/17 Tamsulosin [Flomax] 0.4 mg PO DAILY 01/08/14 03/21/17 traZODone [Desyrel] 50 mg PO DAILY 01/08/14 03/21/17 Amlodipine Besylate/Benazepril 5 mg PO DAILY 02/19/17 03/21/17 [Amlodipine-Benazepril 2.5-10] Aspirin [Low Dose Aspirin EC] 81 mg PO DAILY 02/19/17 03/21/17 Buspirone HCl 10 mg PO DAILY 02/19/17 03/21/17 Cholecalciferol (Vitamin D3) 1,000 unit PO DAILY 02/19/17 03/21/17 [Children's Vitamin D3] Citalopram Hydrobromide [Celexa] 20 mg PO DAILY 02/19/17 03/21/17 Olopatadine HCl [Pazeo] 1 drp OU DAILY 02/19/17 03/21/17 Onamm-9-[id number] Ethyl Esters 1 GM 1 gm PO QID 02/19/17 03/21/17 [Lovaza] Omeprazole 40 mg PO DAILY 02/19/17 03/21/17 Review of Systems - Review of Systems Constitutional: absent: Fatigue, Fevers Respiratory: absent: SOB, Cough Cardiovascular: absent: Chest Pain, Palpitations Gastrointestinal: absent: Abdominal Pain, Nausea, Vomiting Genitourinary Male: absent: Dysuria, Frequency, Hematuria Musculoskeletal: Arthralgias. absent: Back Pain Skin: absent: Rash, Pruritis Neurological: absent: Headache, Dizziness Psychiatric: absent: Anxiety, Depression Physical Exam Vital Signs Reviewed: Yes Vital Signs Temp Pulse Resp BP Pulse Ox 03/21/17 23:44 97.9 F 84 18 161/82 H 97 03/21/17 21:14 98.2 F 93 H 19 139/88 96 Temperature: Afebrile Blood Pressure: Normal Pulse: Regular Respiratory Rate: Normal Appearance: Positive for: Well-Appearing, Non-Toxic, Comfortable Pain Distress: None Mental Status: Positive for: Alert and Oriented X 3 - Systems Exam Head: Present: Atraumatic Mouth: Present: Moist Mucous Membranes Neck: Present: Normal Range of Motion Respiratory/Chest: Present: Clear to Auscultation, Good Air Exchange. No: Respiratory Distress, Accessory Muscle Use Cardiovascular: Present: Regular Rate and Rhythm, Normal S1, S2. No: Murmurs Upper Extremity: Present: Normal Inspection Lower Extremity: Present: NORMAL PULSES, Tenderness (right knee; + edema and tenderness noted over the anterior aspect of the right knee. slightly decreased flexion of knee. full extension; no warmth. no calf tenderness. left knee; + ttp over anterior aspect; no erythema; no edema, no ecchymosis; full rom of knee ; no calf tenderness; sensation and distal pulses present in both knees. ), Swelling, Neurovascularly Intact, Capillary Refill < 2 s. No: CALF TENDERNESS, Normal ROM, Erythema, Deformity Neurological: Present: GCS=15, Speech Normal Skin: Present: Warm, Dry Psychiatric: Present: Alert, Oriented x 3 Medical Decision Making ED Course and Treatment: 03/21/17 23:39 Patient nontoxic well-appearing in no distress with stable vital signs X-rays of the knees bilaterally; no fracture tylenol PO right knee placed in knee immobilizer. Cane given for ambulation I did stress the importance of follow-up with the orthopedist within the next 2 days. I discussed immediate return of signs of infection develop: Worsening pain , worsening swelling, redness, inability to flex or extend the knee or any other concerning symptoms develop. I discussed all results with patient advised to followup with the orthopedist for the next 2 days. Return if symptoms worsen persist or new symptoms develop Patient states he will follow up with his primary care physician tomorrow Patient verbalizes understanding of discharge instructions and need for immediate followup. all aspects of this case were discussed the attending of record. Impression: knee pain Tylenol every 4 hours as needed for pain Rest, ice, compression, elevation Use cane for ambulation Followup with the orthopedist within the next 2 days Followup with primary care physician within the next 2 days Return if symptoms worsen persist or if new symptoms develop; high fevers, increasing pain, redness, swelling or if any other concerning symptoms develop. - RAD Interpretation Radiology Orders: 03/21/17 22:14 KNEE W PATELLA BILAT 3 VIEW [RAD] Stat - Medication Orders Current Medication Orders: Discontinued Medications Acetaminophen (Tylenol 325mg Tab) 975 mg PO STAT STA Stop: 03/21/17 22:15 Last Admin: 03/21/17 22:38 Dose: 975 mg Disposition/Present on Arrival - Present on Arrival Any Indicators Present on Arrival: No History of DVT/PE: No History of Uncontrolled Diabetes: No Urinary Catheter: No History of Decub. Ulcer: No History Surgical Site Infection Following: None - Disposition Have Diagnosis and Disposition been Completed?: Yes Diagnosis: Knee pain, Knee effusion Disposition: HOME/ ROUTINE Disposition Time: 23:41 Patient Plan: Discharge Condition: GOOD Discharge Instructions (ExitCare): Swollen Knee Joint (ED), Knee Pain (ED) Additional Instructions: Tylenol every 4 hours as needed for pain Rest, ice, compression, elevation Use cane for ambulation Followup with the orthopedist within the next 2 days Followup with primary care physician within the next 2 days Return if symptoms worsen persist or if new symptoms develop; high fevers, increasing pain, redness, swelling or if any other concerning symptoms develop. Referrals: Marcin Nicholson MD [Primary Care Provider] - Follow up with primary Vania Rodríguez MD [Staff Provider] - Follow up with primary [facility] [Outside] - Follow up with primary
[2017-03-21 23:45] VITALS: BP 161/82; PULSE 84; RESP 18; TEMP 97.9; O2SAT 97
--- NOTE | 2017-03-22 08:12 | RAD ---
PROCEDURE: Bilateral Knee Radiographs. HISTORY: b/l knee pain right > left COMPARISON: None. FINDINGS: BONES: Right Knee: Normal. No fracture. Left Knee: Normal. No fracture. JOINTS: Right Knee: Normal. No osteoarthritis. Left knee: Normal. No osteoarthritis. SOFT TISSUES: Right Knee: Normal. Left Knee: Normal. JOINT EFFUSION: Right Knee: None. Left Knee: None. OTHER FINDINGS: None. IMPRESSION: Normal radiographs of the knees.
== END 2017-03-21 23:49 | disposition home or self-care (01) ==
LOC: ED 21:06
DX: M25.562 Pain in left knee (principal); M25.561 Pain in right knee; M25.461 Effusion, right knee

== ENCOUNTER 2017-07-07 10:48 | Day surgery (SDC) | payer MEDICARE ==
[2017-07-07] MEDS ORDERED: Propofol 10 mg/ml Inj (20 ML) ONE ×3 (12:35→12:55)
[2017-07-07] MEDS ORDERED: Sodium Chloride 0.9% 1,000 ML IV SCH (13:30)
[2017-07-07 13:52] VITALS: RESP 16
[2017-07-07 14:07] VITALS: BP 113/71; PULSE 59; TEMP 98; O2SAT 98
== END 2017-07-07 14:36 | disposition home or self-care (01) ==
LOC: ENDO 10:48
PROVIDERS: ATTEND Internal Medicine
DX: K29.50 Unspecified chronic gastritis without bleeding (principal); R10.30 Lower abdominal pain, unspecified; K64.8 Other hemorrhoids; K21.0 Gastro-esophageal reflux disease with esophagitis; K44.9 Diaphragmatic hernia without obstruction or gangrene; R13.10 Dysphagia, unspecified; I10 Essential (primary) hypertension; E11.9 Type 2 diabetes mellitus without complications; H40.9 Unspecified glaucoma; K76.9 Liver disease, unspecified; Z94.4 Liver transplant status; Z86.010 Personal history of colon polyps
CPT/HCPCS: 43239; 45378; 82948; 88305; 88312; 88342; J2001; J2704; J3010; J7040 ×2

== ENCOUNTER 2017-09-12 19:40 | Emergency (ER) | payer MEDICARE ==
[2017-09-12 19:40] VITALS: BMI 32.3
[2017-09-12 20:27] VITALS: BP 155/89; PULSE 60; RESP 18; TEMP 97.9; O2SAT 96
--- NOTE | 2017-09-12 20:30 | ED PDOC ---
Arrival/HPI - General Chief Complaint: Back Pain Time Seen by Provider: 09/12/17 19:50 Historian: Patient - History of Present Illness Narrative History of Present Illness (Text): 09/12/17 20:31 A 67 year old male, whose past medical history includes hypertension, diabetes, sleep apnea, liver cancer, liver transplant, presents to the emergency department complaining of lower back pain this evening. Patient denies any history of trauma. Patient states he had similar pain in the past and received a nerve block. Reports pain is worsened with movement, bending or lying down. Denies pain radiating to lower extremities. No leg weakness. Patient is able to ambulate without difficulty. Denies any abdominal pain, dysuria, hematuria, or any other complaints at this time. Symptom Onset: Sudden Symptom Course: Unchanged Activities at Onset: Rest Context: Home Past Medical History - Provider Review Nursing Documentation Reviewed: Yes - Infectious Disease Hx of Infectious Diseases: None - Tetanus Immunization Tetanus Immunization: Unknown - Cardiac Hx Cardiac Disorders: Yes Hx Hypertension: Yes Hx Pacemaker: No - Pulmonary Hx Respiratory Disorders: No - Neurological Hx Paralysis: No - HEENT Hx HEENT Disorder: Yes (WEARS RX GLASSES) Hx Cataracts: Yes Hx Glaucoma: Yes - Renal Hx Renal Disorder: No - Endocrine/Metabolic Hx Endocrine Disorders: Yes Hx Diabetes Mellitus Type 2: Yes - Hematological/Oncological Hx Blood Disorders: Yes Hx Blood Transfusions: Yes (2006) Hx Blood Transfusion Reaction: No - Integumentary Hx Dermatological Disorder: No - Musculoskeletal/Rheumatological Hx Musculoskeletal Disorders: No - Gastrointestinal Hx Gastrointestinal Disorders: Yes (HIATAL HERNIA SMALL) Hx Liver Failure: Yes (liver transplant 2006) - Genitourinary/Gynecological Hx Genitourinary Disorders: Yes (ENLARGED PROSTATE) Hx Prostate Problems: Yes (BPH) - Psychiatric Hx Emotional Abuse: No Hx Physical Abuse: No Hx Substance Use: No - Surgical History Hx Liver Transplant: Yes (2006) - Anesthesia Hx Anesthesia: Yes Hx Anesthesia Reactions: No Hx Malignant Hyperthermia: No - Suicidal Assessment Feels Threatened In Home Enviroment: No Family/Social History - Physician Review Nursing Documentation Reviewed: Yes Family/Social History: No Known Family HX Smoking Status: Never Smoked Hx Alcohol Use: No Hx Substance Use: No Hx Substance Use Treatment: No Allergies/Home Meds Allergies/Adverse Reactions: Allergies codeine Allergy (Verified 09/12/17 20:19) ANAPHYLAXIS Home Medications: Home Meds Medication Instructions Recorded Confirmed Bimatoprost [Lumigan] 1 drop OU HS 11/18/12 07/07/17 Bisoprolol 5 mg PO DAILY 11/18/12 07/07/17 Mycophenolate Mofetil [Cellcept] 500 mg PO BID 11/18/12 07/07/17 Cyclosporine, Modified [Neoral] 50 mg PO BID 08/25/13 07/07/17 Vitamin B Complex & Vitamin C 1 tab PO DAILY 08/25/13 07/07/17 [Strovite] Tamsulosin [Flomax] 0.4 mg PO DAILY 01/08/14 07/07/17 Amlodipine Besylate/Benazepril 5 mg PO DAILY 02/19/17 07/07/17 [Amlodipine-Benazepril 2.5-10] Aspirin [Low Dose Aspirin EC] 81 mg PO DAILY 02/19/17 07/07/17 Buspirone HCl 10 mg PO DAILY 02/19/17 07/07/17 Cholecalciferol (Vitamin D3) 1,000 unit PO DAILY 02/19/17 07/07/17 [Children's Vitamin D3] Citalopram Hydrobromide [Celexa] 20 mg PO DAILY 02/19/17 07/07/17 Olopatadine HCl [Pazeo] 1 drp OU DAILY 02/19/17 07/07/17 [id number] Ethyl Esters 1 GM 1 gm PO QID 02/19/17 07/07/17 [Lovaza] Omeprazole 40 mg PO DAILY 02/19/17 07/07/17 Linagliptin [Tradjenta] 5 mg PO DAILY 07/07/17 07/07/17 Review of Systems - Physician Review All systems were reviewed & negative as marked: Yes - Review of Systems Gastrointestinal: absent: Abdominal Pain Genitourinary Male: absent: Dysuria, Hematuria Musculoskeletal: Back Pain (lower). absent: Other (leg weakness) Physical Exam Vital Signs Reviewed: Yes Vital Signs Temp Pulse Resp BP Pulse Ox 09/12/17 20:26 97.9 F 60 18 155/89 H 96 Temperature: Afebrile Blood Pressure: Hypertensive Pulse: Regular Respiratory Rate: Normal Appearance: Positive for: Well-Appearing, Non-Toxic, Comfortable Pain Distress: None Mental Status: Positive for: Alert and Oriented X 3 - Systems Exam Head: Present: Atraumatic, Normocephalic Pupils: Present: PERRL Extroacular Muscles: Present: EOMI Conjunctiva: Present: Normal Mouth: Present: Moist Mucous Membranes Neck: Present: Normal Range of Motion Respiratory/Chest: Present: Clear to Auscultation, Good Air Exchange. No: Respiratory Distress, Accessory Muscle Use Cardiovascular: Present: Regular Rate and Rhythm, Normal S1, S2. No: Murmurs Abdomen: Present: Normal Bowel Sounds. No: Tenderness, Distention, Peritoneal Signs, Other (palpable masses) Back: Present: Normal Inspection, Other (no dorsal spinal tenderness; lower paralumbar muscle spasm noted) Upper Extremity: Present: Normal Inspection. No: Cyanosis, Edema Lower Extremity: Present: Neurovascularly Intact, Other (some discomfort b/l leg raising ). No: Edema Neurological: Present: GCS=15, CN II-XII Intact, Speech Normal Skin: Present: Warm, Dry, Normal Color. No: Rashes Psychiatric: Present: Alert, Oriented x 3, Normal Insight, Normal Concentration Medical Decision Making ED Course and Treatment: 09/12/17 20:29 Impression: A 67 year old male with lower back pain. Plan: -- CT lumbar spine -- Toradol, Valium -- Reassess and disposition Prior Visits: Notes and results from previous visits were reviewed. Patient was last seen in the emergency department on 03/21/17 for evaluation of bilateral knee pain. Progress Notes: CT Lumbar Spine Without Intravenous Contrast FINDINGS: Vertebrae: The lumbar vertebral bodies are normal in height, without acute fracture. There is grade I anterolisthesis of L4 on L5. Discs/spinal canal/neural foramina: Degenerative disc disease is noted diffusely within the lumbar spine, with disc bulge/osteophyte complexes. L1-L2: There is no significant narrowing of the thecal sac or neural foramina. L2-L3: There is mild disc bulging, without thecal sac compression. Mild bilateral neural foraminal narrowing is identified. L3-L4: There is mild disc bulging, without thecal sac compression. Mild right and moderate left neural foraminal narrowing is identified. L4-L5: There is a broad-based disc bulge with minimal narrowing of the thecal sac. Moderate right and mild left neural foraminal narrowing is identified. There is narrowing of both lateral recesses. Bilateral facet arthropathy is visualized. L5-S1: There is no significant narrowing of the thecal sac. Mild bilateral neural foramina is identified. Vasculature: There is a retroaortic left renal vein. There is atherosclerotic calcification of the abdominal aorta. 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 IMPRESSION: 1. The lumbar vertebral bodies are normal in height, without acute fracture. 2. There is grade I anterolisthesis of L4 on L5. 3. 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 4. Degenerative changes are noted diffusely within the lumbar spine, as described above. 5. There is minimal narrowing of the thecal sac at L4-5. 6. Neural foraminal narrowing is identified from L2-3 through L5-S1, as detailed above. This can be further evaluated with MRI. Dictated and Authenticated by: Mehdi Mendenhall MD 09/12/2017 10:17 PM Eastern Time ([place] & [place]) 09/12/17 22:41 On reevaluation the patient feels better and is in no acute distress. I have discussed the results and plan with the patient, who expresses understanding. Patient given the opportunity to ask question, all questions were answered and there is agreement with the plan to discharge the patient home. Patient is stable for discharge. Patient was instructed to follow up with physician/clinic in 1-2 days or return if symptoms persist/worsen or new concerning symptoms arise. - Lab Interpretations Lab Results: Lab Results 09/12/17 20:19: POC Glucose (mg/dL) 78 - RAD Interpretation Radiology Orders: 09/12/17 20:04 LUMBAR SPINE W/O CONTRAST [CT] Stat - Medication Orders Current Medication Orders: Discontinued Medications Diazepam (Valium) 2 mg PO ONCE ONE PRN Reason: Protocol Stop: 09/12/17 20:03 Last Admin: 09/12/17 20:38 Dose: 2 mg Ketorolac Tromethamine (Toradol) 60 mg IM ONCE ONE Stop: 09/12/17 20:03 Last Admin: 09/12/17 20:37 Dose: 60 mg MAR Pain Assessment Document 09/12/17 20:37 ALIVIA (Rec: 09/12/17 20:37 ALIVIA [id number]) Pain Reassessment Is this a pain reassessment? No IM Administration Charges Document 09/12/17 20:37 ALIVIA (Rec: 09/12/17 20:37 ALIVIA [id number]) Charges for Administration # of IM Administrations 1 - Scribe Statement The provider has reviewed the documentation as recorded by the Sarah Loving Provider Sarah Attestation: All medical record entries made by the Scribe were at my direction and personally dictated by me. I have reviewed the chart and agree that the record accurately reflects my personal performance of the history, physical exam, medical decision making, and the department course for this patient. I have also personally directed, reviewed, and agree with the discharge instructions and disposition. Disposition/Present on Arrival - Present on Arrival Any Indicators Present on Arrival: No History of DVT/PE: No History of Uncontrolled Diabetes: No Urinary Catheter: No History of Decub. Ulcer: No History Surgical Site Infection Following: None - Disposition Have Diagnosis and Disposition been Completed?: Yes Diagnosis: Lower back pain, Degenerative disc disease Disposition: HOME/ ROUTINE Disposition Time: 22:41 Patient Plan: Discharge Patient Problems: Current Active Problems Problem Status Onset Degenerative disc disease Acute Lower back pain Acute Condition: GOOD Discharge Instructions (ExitCare): Acute Low Back Pain (ED), Degenerative Disc Disease (ED) Additional Instructions: Rest/no strenuous physical activity/take meds as prescribed/follow up with your doctor this week Prescriptions: Ketorolac Tromethamine [Toradol] 10 mg PO TID PRN #12 tab PRN Reason: Pain, Moderate (4-7) diaZEpam [Valium] 2 mg PO TID PRN #12 tab PRN Reason: Muscle Spasm Referrals: Marcin Nicholson MD [Primary Care Provider] - Follow up with primary Gideon Sheehan MD [Staff Provider] - Follow up with primary Forms: Joust (Serbian)
--- NOTE | 2017-09-12 22:17 | CT ---
EXAM: CT Lumbar Spine Without Intravenous Contrast EXAM DATE/TIME: 09/12/2017 8:04 PM CLINICAL HISTORY: The patient age is 67 years old and is male; Pain; Low back pain Facility exam id and description: Ct lumbs lumbar spine w/o contrast TECHNIQUE: Axial computed tomography images of the lumbar spine without intravenous contrast. All CT scans at this facility use one or more dose reduction techniques, viz.: automated exposure control; ma/kV adjustment per patient size (including targeted exams where dose is matched to indication; i.e. head); or iterative reconstruction technique. Coronal and sagittal reformatted images were created and reviewed. COMPARISON: CT - ABD PELVIS W/O PO OR IV CONT 2017-02-19 01:13 FINDINGS: Vertebrae: The lumbar vertebral bodies are normal in height, without acute fracture. There is grade I anterolisthesis of L4 on L5. Discs/spinal canal/neural foramina: Degenerative disc disease is noted diffusely within the lumbar spine, with disc bulge/osteophyte complexes. L1-L2: There is no significant narrowing of the thecal sac or neural foramina. L2-L3: There is mild disc bulging, without thecal sac compression. Mild bilateral neural foraminal narrowing is identified. L3-L4: There is mild disc bulging, without thecal sac compression. Mild right and moderate left neural foraminal narrowing is identified. L4-L5: There is a broad-based disc bulge with minimal narrowing of the thecal sac. Moderate right and mild left neural foraminal narrowing is identified. There is narrowing of both lateral recesses. Bilateral facet arthropathy is visualized. L5-S1: There is no significant narrowing of the thecal sac. Mild bilateral neural foramina is identified. Vasculature: There is a retroaortic left renal vein. There is atherosclerotic calcification of the abdominal aorta. 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 IMPRESSION: 1. The lumbar vertebral bodies are normal in height, without acute fracture. 2. There is grade I anterolisthesis of L4 on L5. 3. 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 4. Degenerative changes are noted diffusely within the lumbar spine, as described above. 5. There is minimal narrowing of the thecal sac at L4-5. 6. Neural foraminal narrowing is identified from L2-3 through L5-S1, as detailed above. This can be further evaluated with MRI.
== END 2017-09-12 22:52 | disposition home or self-care (01) ==
LOC: ED 19:40
DX: M54.5 Low back pain (principal); M51.36 Other intervertebral disc degeneration, lumbar region
CPT/HCPCS: 72131; 82948; 96372; 99281; J1885

== ENCOUNTER 2018-04-19 21:45 | Emergency (ER) | payer MEDICARE, OTHER ==
[2018-04-19 22:07] VITALS: BMI 31.9
[2018-04-19 22:12] VITALS: RESP 18; TEMP 98.6; O2SAT 96
--- NOTE | 2018-04-19 23:10 | ED PDOC ---
Arrival/HPI <Axel Felix - Last Filed: 04/20/18 03:48> - General Historian: Patient - History of Present Illness Time/Duration: Prior to Arrival Symptom Onset: Gradual Symptom Course: Unchanged Quality: Aching Severity Level: 10 Activities at Onset: Rest Context: Home <Nic Adkins - Last Filed: 04/20/18 06:24> - General Chief Complaint: Upper Extremity Problem/Injury Time Seen by Provider: 04/19/18 22:17 - History of Present Illness Narrative History of Present Illness (Text): 04/19/18 22:53 Patient is a 68 M with a past history of liver transplant s/p hepatocellular carcinoma secondary to hepatitis C, hypertension, hyperlipidemia, diabetes mellitus presenting with complaints of neck pain which began two days ago. Patient describes the pain as sharp radiating from the right side of his neck down to his right scapula. Patient states the pain is constant and is exacerbated upon palpation. Patient has not taken any medications to relieve his pain since he has to be careful with medications he takes due to his liver transplant. Patient denies fevers, chills, current shortness of breath, chest pain, palpitations, headache, cough, nausea, vomiting, diarrhea, abdominal pain , dysuria. (Nic Adkins) Past Medical History - Provider Review Nursing Documentation Reviewed: Yes - Infectious Disease Hx of Infectious Diseases: None - Tetanus Immunization Tetanus Immunization: Unknown - Cardiac Hx Cardiac Disorders: Yes Hx Hypertension: Yes - Pulmonary Hx Respiratory Disorders: No - Neurological Hx Neurological Disorder: No - HEENT Hx HEENT Disorder: Yes (WEARS RX GLASSES) Hx Cataracts: Yes Hx Glaucoma: Yes - Renal Hx Renal Disorder: No - Endocrine/Metabolic Hx Endocrine Disorders: Yes Hx Diabetes Mellitus Type 2: Yes - Hematological/Oncological Hx Blood Disorders: Yes Hx Blood Transfusions: Yes (2006) - Integumentary Hx Dermatological Disorder: No - Musculoskeletal/Rheumatological Hx Musculoskeletal Disorders: No - Gastrointestinal Hx Gastrointestinal Disorders: Yes (HIATAL HERNIA SMALL) Hx Liver Failure: Yes (liver transplant 2006) - Genitourinary/Gynecological Hx Genitourinary Disorders: Yes (ENLARGED PROSTATE) Hx Prostate Problems: Yes (BPH) - Psychiatric Hx Psychophysiologic Disorder: No Hx Substance Use: No - Surgical History Hx Liver Transplant: Yes (2006) - Anesthesia Hx Anesthesia: Yes Hx Anesthesia Reactions: No Hx Malignant Hyperthermia: No - Suicidal Assessment Feels Threatened In Home Enviroment: No <Nic Adkins - Last Filed: 04/20/18 06:24> Family/Social History - Physician Review Nursing Documentation Reviewed: Yes Family/Social History: Diabetes, Hypertension Smoking Status: Never Smoked Hx Alcohol Use: No Hx Substance Use: No Hx Substance Use Treatment: No <Nic Adkins - Last Filed: 04/20/18 06:24> Allergies/Home Meds <Axel Felix - Last Filed: 04/20/18 03:48> <Nic Adkins - Last Filed: 04/20/18 06:24> Allergies/Adverse Reactions: Allergies codeine Allergy (Verified 04/19/18 22:06) ANAPHYLAXIS Home Medications: Home Meds Medication Instructions Recorded Confirmed Bimatoprost [Lumigan] 1 drop OU HS 11/18/12 07/07/17 Bisoprolol 5 mg PO DAILY 11/18/12 07/07/17 Mycophenolate Mofetil [Cellcept] 500 mg PO BID 11/18/12 07/07/17 Cyclosporine, Modified [Neoral] 50 mg PO BID 08/25/13 07/07/17 Vitamin B Complex & Vitamin C 1 tab PO DAILY 08/25/13 07/07/17 [Strovite] Tamsulosin [Flomax] 0.4 mg PO DAILY 01/08/14 07/07/17 Amlodipine Besylate/Benazepril 5 mg PO DAILY 02/19/17 07/07/17 [Amlodipine-Benazepril 2.5-10] Aspirin [Low Dose Aspirin EC] 81 mg PO DAILY 02/19/17 07/07/17 Buspirone HCl 10 mg PO DAILY 02/19/17 07/07/17 Cholecalciferol (Vitamin D3) 1,000 unit PO DAILY 02/19/17 07/07/17 [Children's Vitamin D3] Citalopram Hydrobromide [Celexa] 20 mg PO DAILY 02/19/17 07/07/17 Olopatadine HCl [Pazeo] 1 drp OU DAILY 02/19/17 07/07/17 [id number] Ethyl Esters 1 GM 1 gm PO QID 02/19/17 07/07/17 [Lovaza] Omeprazole 40 mg PO DAILY 02/19/17 07/07/17 Linagliptin [Tradjenta] 5 mg PO DAILY 07/07/17 07/07/17 Review of Systems - Physician Review All systems were reviewed & negative as marked: Yes - Review of Systems Constitutional: Normal Eyes: Normal ENT: Normal Respiratory: absent: SOB, Cough Cardiovascular: absent: Chest Pain, Palpitations Gastrointestinal: absent: Abdominal Pain, Diarrhea, Nausea, Vomiting Genitourinary Male: Frequency. absent: Dysuria Musculoskeletal: Back Pain (right scapula), Neck Pain Skin: absent: Rash Neurological: absent: Headache, Dizziness Endocrine: Normal Hemo/Lymphatic: Normal Psychiatric: Normal <Nic Adkins - Last Filed: 04/20/18 06:24> Physical Exam Vital Signs Reviewed: Yes Temperature: Afebrile Blood Pressure: Normal Pulse: Regular Respiratory Rate: Normal Appearance: Positive for: Well-Appearing, Non-Toxic, Comfortable Pain Distress: None Mental Status: Positive for: Alert and Oriented X 3 - Systems Exam Head: Present: Atraumatic, Normocephalic Pupils: Present: PERRL Extroacular Muscles: Present: EOMI Conjunctiva: Present: Normal Mouth: Present: Moist Mucous Membranes Neck: Present: Normal Range of Motion, Other (right sided tenderness) Respiratory/Chest: Present: Clear to Auscultation. No: Wheezes, Rhonchi Cardiovascular: Present: Regular Rate and Rhythm, Normal S1, S2. No: Murmurs Abdomen: Present: Normal Bowel Sounds. No: Tenderness, Distention Upper Extremity: Present: Normal Inspection, Other (right scapular tenderness) Lower Extremity: Present: Normal Inspection Neurological: Present: GCS=15, CN II-XII Intact, Speech Normal Skin: Present: Warm, Normal Color Psychiatric: Present: Alert, Oriented x 3, Normal Insight, Normal Concentration <Nic Adkins - Last Filed: 04/20/18 06:24> Vital Signs Temp Pulse Resp BP Pulse Ox 04/20/18 03:20 98.6 F 80 18 120/80 96 04/19/18 22:10 98.6 F 79 18 116/72 96 Medical Decision Making <Axel Felix - Last Filed: 04/20/18 03:48> Re-evaluation Time: 02:30 (pain improving) Reassessment Condition: Re-examined - Lab Interpretations I have reviewed the lab results: Yes Interpretation: All labs normal - EKG Interpretation Interpreted by ED Physician: Yes Type: 12 lead EKG <Nic Adkins - Last Filed: 04/20/18 06:24> ED Course and Treatment: CXR Impression: As read by resident, negative EKG: Ordered, reviewed, and independently interpreted (by resident)the EKG. Rate : 69 BPM Rhythm : NSR Interpretation : Left ventricular hypertrophy Patient Seen With Resident: In agreement with resident note which contains more details about the patient. Patient was seen and evaluated with resident. Came up with plan and treatment together. 68 year old male presents complaining of neck pain that radiates from the right side down to his right scapula that began 2 days ago. Plan: -- Labs -- Chest 2 views x-ray -- Flexeril, K-Dur 20, Toradol (Gabrin,Axel) 04/19/18 23:13 CBC, CMP, Trop, EKG, Chest X-ray Muscle Spasm vs Rule out ACS -Trop negative x 2, EKG revealed no abnormalities, Chest x-ray no abnormalities. Patient's pain responded to flexeril. Patient was discharged with instructions to follow up with PMD and prescription for flexeril for 3 days. (Nic Adkins) - Lab Interpretations Lab Results: 04/19/18 23:20 04/19/18 23:20 Lab Results 04/20/18 01:46: Troponin I < 0.01 04/19/18 23:20: Sodium 144, Potassium 3.5 L, Chloride 104, Carbon Dioxide 24, Anion Gap 20, BUN 19, Creatinine 1.2, Est GFR ( Amer) > 60, Est GFR (Non- Af Amer) > 60, Random Glucose 121 H, Calcium 9.7, Total Bilirubin 1.7 H, AST 23 , ALT 26, Alkaline Phosphatase 72, Troponin I < 0.01, Total Protein 7.6, Albumin 4.5, Globulin 3.1, Albumin/Globulin Ratio 1.5 04/19/18 23:20: WBC 10.3 D, RBC 5.14, Hgb 15.4, Hct 44.2, MCV 86.0, MCH 30.0, MCHC 34.8, RDW 13.1, Plt Count 310, MPV 10.1, Gran % 54.7, Lymph % (Auto) 31.1, [place] % (Auto) 11.1 H, Eos % (Auto) 2.6, Baso % (Auto) 0.5, Gran # 5.64, Lymph # (Auto) 3.2, [place] # (Auto) 1.2 H, Eos # (Auto) 0.3, Baso # (Auto) 0.05 - RAD Interpretation Radiology Orders: 04/19/18 22:33 CHEST TWO VIEWS (PA/LAT) [RAD] Stat - Medication Orders Current Medication Orders: Discontinued Medications Cyclobenzaprine HCl (Flexeril) 10 mg PO STAT STA Stop: 04/20/18 01:37 Last Admin: 04/20/18 01:43 Dose: 10 mg Ketorolac Tromethamine (Toradol) 30 mg IVP STAT STA Stop: 04/20/18 00:40 Last Admin: 04/20/18 01:03 Dose: 30 mg MAR Pain Assessment Document 04/20/18 01:03 OCS (Rec: 04/20/18 01:04 OCS [id number]) Pain Reassessment Is this a pain reassessment? Yes Sleep Is patient sleeping during reassessment? No Presence of Pain Presence of Pain Yes Pain Scale Used Pain Scale Used Numeric Location Left, Right or Bilateral Right Upper or Lower Upper Pain Location Body Site Neck Back Description Description Constant Aggravating Factors ADL's IVP Administration Document 04/20/18 01:03 OCS (Rec: 04/20/18 01:04 OCS [id number]) Charges for Administration # of IVP Administrations 1 Potassium Chloride (K-Dur 20 Meq Er Tab) 20 meq PO STAT STA Stop: 04/20/18 02:10 Last Admin: 04/20/18 02:50 Dose: 20 meq - Scribe Statement The provider has reviewed the documentation as recorded by the Scribe <Axel Felix - Last Filed: 04/20/18 03:48> <Nic Adkins - Last Filed: 04/20/18 06:24> - Scribe Statement Orly Duran Provider Scribe Attestation: All medical record entries made by the Scribe were at my direction and personally dictated by me. I have reviewed the chart and agree that the record accurately reflects my personal performance of the history, physical exam, medical decision making, and the department course for this patient. I have also personally directed, reviewed, and agree with the discharge instructions and disposition. (Axel Felix) Disposition/Present on Arrival <Axel Felix - Last Filed: 04/20/18 03:48> - Present on Arrival Any Indicators Present on Arrival: No History of DVT/PE: No History of Uncontrolled Diabetes: No Urinary Catheter: No History of Decub. Ulcer: No History Surgical Site Infection Following: None - Disposition Have Diagnosis and Disposition been Completed?: Yes Disposition Time: 02:29 Patient Plan: Discharge <Nic Adkins Rebecca - Last Filed: 04/20/18 06:24> - Disposition Diagnosis: Muscle spasm Disposition: HOME/ ROUTINE Condition: GOOD Discharge Instructions (ExitCare): Muscle Spasms (DC) Additional Instructions: Mr. Kumar, thank you for letting us take care of you today. The emergency medical care you received today was directed at your acute symptoms. If you were prescribed any medication, please fill it and take as directed. It may take several days for your symptoms to resolve. Return to the Emergency Department if your symptoms worsen, do not improve, or if you have any other problems. Please contact your doctor or call one of the physicians/clinics you have been referred to that are listed on the Patient Visit Information form that is included in your discharge packet. Bring any paperwork you were given at discharge with you along with any medications you are taking to your follow up visit. Our treatment cannot replace ongoing medical care by a primary care provider (PCP) outside of the emergency department. Thank you for allowing the [facility] team to be part of your care today. If you had an X-Ray or CT scan: A Radiologist will review the ED reading if any change in treatment is needed we will contact you. If you had a blood, urine, or wound culture: It will take several days for the results, if any change in treatment is needed we will contact you. If you had an STI test: It will take 48 hours for the results. Please call after 1 week if you have not heard back. Prescriptions: Cyclobenzaprine [Cyclobenzaprine HCl] 10 mg PO TID PRN #6 tab PRN Reason: Pain, Severe (8-10) Forms: [place] ([place])
[2018-04-19 23:32] LABS: BASO # 0.05 K/mm3 (0.0-2.0); BASO % 0.5 % (0.0-3.0); EOS # 0.3 (0.0-0.7); EOS % 2.6 % (1.5-5.0); GRAN # 5.64 (1.4-6.5); GRAN % 54.7 % (50.0-68.0); HEMOGLOBIN 15.4 g/dL (14.0-18.0); LYMPH # 3.2 (1.2-3.4); LYMPH % 31.1 % (22.0-35.0); MEAN CORPUSCULAR HGB CONC 34.8 g/dl (31.0-37.0); MEAN PLATELET VOLUME 10.1 fl (7.0-11.0); MONO # 1.2 (0.1-0.6); MONO % 11.1 % (1.0-6.0); RBC 5.14 10^6/uL (3.5-6.1); RED CELL DISTRIBUTION WIDTH 13.1 % (11.5-14.5); WHITE BLOOD COUNT 10.3 10^3/ul (4.5-11.0)
[2018-04-19 23:39] LABS: ALB/GLOB RATIO 1.5 (1.1-1.8); ALBUMIN 4.5 g/dL (3.0-4.8); ALT/SGPT 26 U/L (7-56); AST/SGOT 23 U/L (17-59); BLOOD UREA NITROGEN 19 mg/dL (7-21); CALCIUM 9.7 mg/dL (8.4-10.5); GFR AFRICAN-AMERICAN > 60; GFR NON-AFRICAN AMERICAN > 60
[2018-04-19 23:50] LABS: TROPONIN I < 0.01 ng/mL
[2018-04-20] MEDS ORDERED: Potassium Chloride 20 mEq ER Tab PO STA (02:09)
[2018-04-20 03:21] VITALS: BP 120/80; PULSE 80
--- NOTE | 2018-04-20 08:21 | RAD ---
HISTORY: shortness of breath COMPARISON: 02/19/2017 TECHNIQUE: Chest PA and lateral FINDINGS: LUNGS: No active pulmonary disease. PLEURA: No significant pleural effusion identified. No pneumothorax apparent. CARDIOVASCULAR: Normal. OSSEOUS STRUCTURES: No significant abnormalities. VISUALIZED UPPER ABDOMEN: Normal. OTHER FINDINGS: None. IMPRESSION: No active disease.
--- NOTE | 2018-04-20 23:46 | CARD ---
APPROVED REPORT EKG Measurement Heart [id number] <Conclusion> Normal sinus rhythm Voltage criteria for left ventricular hypertrophy Inferior infarct, age undetermined Abnormal ECG
== END 2018-04-20 03:19 | disposition home or self-care (01) ==
LOC: ED 21:45
DX: M62.838 Other muscle spasm (principal); E78.5 Hyperlipidemia, unspecified; E11.9 Type 2 diabetes mellitus without complications; I10 Essential (primary) hypertension
CPT/HCPCS: 71046; 80053; 84484; 85025; 93005; 96374; 99283; J1885